=== PATIENT | male | born 1975 | race Caucasian/White ===

== ENCOUNTER 2016-12-26 17:11 | Day surgery (SDC) | payer BC ==
--- NOTE | ~2016-12-26 | OP ---
Record Of Operation [facility] [address] [place]. [address] NAME: RICHA CHAPPELL : 79 STATUS : REG [facility] PAT#: [id number] AGE: 41 ADM/REG DATE : 12/26/16 MR#: [id number] REPORT SERV DATE: 12/26/16 DICTATED BY: AKHIL DECKER DATE: 12/26/16 REPORT STATUS : Draft TRANSCRIBED BY: MODL DATE: 12/26/16 DATE OF PROCEDURE: 12/26/2016 ATTENDING PHYSICIAN: Akhil Decker M.d. TITLE OF OPERATIONS: Cystourethroscopy, bilateral retrograde pyelograms, left ureteroscopy with laser lithotripsy, and 6 x 24 ureteral stent placement. PREOPERATIVE DIAGNOSIS: Left renal stone. POSTOPERATIVE DIAGNOSIS: Left renal stone. INDICATIONS: Mr. Chappell is a 41-year-old male with an 8-mm left ureteral stone. This was found on KUB. He had a low-grade fever. He has failed conservative management. He is thought to be a best candidate for ureteroscopy, as we are unsure if there is infection, therefore, you would not be a great candidate for shock wave lithotripsy. ANESTHESIA: General. COMPLICATIONS: None. IMPLANT: 6 x 24 left ureteral stent with tether, 16-Somali Mayorga catheter. SPECIMENS: None. NARRATIVE: The patient was brought to the operating room, identified by his wristband. General anesthesia was induced. Ancef was given for preoperative antibiotics. He was placed in the dorsal lithotomy position and prepped and draped in sterile fashion. A cystoscope was placed into his urethra and into his bladder. The bladder was inspected. There were no tumors. The prostatic urethra was fairly friable. He had a high-riding bladder neck. The left ureteral orifice was identified and cannulated with Sensor wire. An open-ended catheter was placed over the wire to the distal ureter. Retrograde pyelogram was shot, which showed nondilated ureter and nondilated renal collecting system. There was a 6- mm stone in the renal pelvis. The patient did complaint of right-sided flank pain. Therefore, I placed a wire into his right ureter and advanced the open-ended catheter over the wire. Retrograde pyelogram was shot, which showed a normal kidney and normal ureter. There were no filling defects. There were no radiopaque stones. Next, a Sensor wire was placed up to the level of the renal pelvis under fluoroscopic guidance. I then put into place a flexible ureteroscope over the wire; however, would not go into the ureter. Therefore, a dual-lumen catheter was placed over the wire with a dilating device. The catheter was removed. The flexible ureteroscope then went up the ureter without difficulty. The kidney was inspected and a 6-mm stone was found in the renal pelvis. Using a 200 micron holmium laser fiber, the stone was fragmented into innumerable small pieces. The stone was very soft. All pieces remaining in the kidney were too small to be basketed. These pieces were all less than 2 mm in size. Given the need for dilation of his ureter, I elected to place a stent. A wire was placed back up to the level of the kidney. The ureter was Record Of [address] [address] NAME: RICHA CHAPPELL : 79 STATUS : REG [facility] PAT#: [id number] AGE: 41 ADM/REG DATE : 12/26/16 MR#: [id number] REPORT SERV DATE: 12/26/16 DICTATED BY: AKHIL DECKER DATE: 12/26/16 REPORT STATUS : Draft TRANSCRIBED BY: EDE DATE: 12/26/[address] and was normal. A 6 x 24 ureteral stent was placed in standard fashion. The proximal coil was in the upper pole of the kidney. The distal coil was in the bladder under direct vision. The bladder was drained. A tether was left in the stent. The tether was taped to the penis. A 16-Somali coude catheter was placed into the bladder. The balloon was inflated with 10 mL of sterile water. The patient was taken to the recovery room in stable condition. There were no complications. I will plan on getting his stent out on Wednesday. JP/EDE Akhil Decker MD / [id number] CC: Akhil Decker MD
== END 2016-12-26 23:59 | disposition home or self-care (01) ==
LOC: SDC 17:11
PROVIDERS: Urology
PROC: 0T778DZ Dilation of Left Ureter with Intraluminal Device, Via Natural or Artificial Opening Endoscopic (ICD-10-PCS; 2016-12-26)
PROC: 0T5 Urinary System, Destruction (ICD-10-PCS; principal; 2016-12-26 12:45)
DX: N20.0 Calculus of kidney (principal); F17.210 Nicotine dependence, cigarettes, uncomplicated
CPT/HCPCS: 74420; A9270-GY; C1729; C1758; J0330; J0690; J2250; J2270; J2405; J2710; J3010; Q9967